=== PATIENT | male | born 1975 | race Hispanic/Latino ===

== ENCOUNTER 2020-02-18 20:15 | Inpatient (IN) | payer SELFPAY ==
--- NOTE | 2020-02-18 20:53 | P.HP ---
Certification for Inpatient Patient admitted to: Observation With expected LOS: <2 Midnights Practitioner: I am a practitioner with admitting privileges, knowledge of patient current condition, hospital course, and medical plan of care. Services: Services provided to patient in accordance with Admission requirements found in Title 42 Section 412.3 of the Code of Federal Regulations Patient History Date of Service: 02/18/20 Reason for admission: Pulmonary embolus History of Present Illness: 44-year-old gentleman presented to [place] emergency department with a complaint of shortness of breath and intermittent chest pain, worse with breathing, onset this morning. Workup in the emergency department with CTA thorax report multiple subsegmental pulmonary embolism in the right lung. Patient was transferred here to be directly admitted for further management. He is not requiring oxygen. He denies any leg swelling or pain. He denies being immobile for several hours. He denies fever. Allergies No Known Drug Allergies Allergy (Unverified 12/19/14 00:38) Unknown No Known Allergies Allergy (Uncoded 10/20/17 21:54) Unknown - Past Medical/Surgical History -: Anal fistula -: Anal fistula repair - Family History Family History: Reviewed- Non-Contributory - Social History Smoking Status: Current every day smoker Alcohol use: No CD- Drugs: No Place of Residence: Home Review of Systems Other: Except as documented, all other systems reviewed and negative. Physical Examination - Physical Exam General: Alert, In no apparent distress, Oriented x3 HEENT: Mucous membr. moist/pink, Sclerae nonicteric Neck: JVD not distended Respiratory: Clear to auscultation bilaterally, Normal air movement Cardiovascular: No edema, Regular rate/rhythm, Normal S1 S2 Capillary refill: <2 Seconds Gastrointestinal: Normal bowel sounds, Soft and benign, Non-distended, No tenderness Musculoskeletal: No swelling, No erythema Integumentary: No rashes Neurological: Normal speech, Normal strength at 5/5 x4 extr Assessment and Plan - Problems (Diagnosis) (1) Acute pulmonary embolism Current Visit: Yes Status: Acute - Plan Place under observation. Start Xarelto. Supplemental oxygen as needed Obtain echocardiogram. Pain management as needed. - Advance Directives Does patient have a Living Will: No Does patient have a Durable POA for Healthcare: No
[2020-02-18] MEDS ORDERED: ONDANSETRON 4 MG/2 ML VIAL IV PRN (21:22)
[2020-02-18] MEDS ORDERED: MORPHINE 2 MG/ML SYR IV PRN (21:22)
[2020-02-18] MEDS ORDERED: ALBUTEROL 2.5 MG/3 ML NEB SOL NEB PRN (21:22)
[2020-02-18] MEDS ORDERED: ACETAMINOPHEN 500 MG TAB PO PRN (21:22)
[2020-02-18 21:40] VITALS: BMI 36.1
[2020-02-18 22:07] LABS: Basophils % 1.1 % (0-1.3); Hematocrit 42.1 % (39.6-49.0); Lymphocytes % 31.4 % (15.3-44.8); MPV 8.3 fL (7.6-11.3); RBC Red Blood Cell Count 4.65 M/uL (4.33-5.43)
[2020-02-18 22:18] LABS: Urine Appearance CLEAR; Urine Bilirubin NEGATIVE (NEG); Urine Blood NEGATIVE (NEG); Urine Color YELLOW; Urine Glucose NEGATIVE (NEG); Urine Protein NEGATIVE (NEG); Urine Specific Gravity <=1.005 (1.005-1.030); Urine Urobilinogen 0.2 mg/dL (0.2-1.0)
[2020-02-18 22:20] LABS: Urine Microscopic Reflex NO UMIC
[2020-02-18 22:22] LABS: Potassium 3.4 mmol/L (3.5-5.1)
[2020-02-18 22:30] LABS: Protime INR 0.91
[2020-02-18] MEDS ORDERED: POTASSIUM CL SA 10 MEQ TAB PO ONE (23:00)
[2020-02-18] MEDS: RIVAROXABAN 15 MG TABLET PO SCH (23:38)
[2020-02-19 04:34] LABS: Absolute Lymphocytes (CBC) 3.2 K/uL (0.7-4.9); Basophils % 0.7 % (0-1.3); Hematocrit 45.1 % (39.6-49.0); Lymphocytes % 32.4 % (15.3-44.8); MPV 8.2 fL (7.6-11.3); RBC Red Blood Cell Count 5.02 M/uL (4.33-5.43)
[2020-02-19 04:47] LABS: Magnesium 2.1 mg/dL (1.8-2.4); Phosphorus 3.1 mg/dL (2.5-4.9)
[2020-02-19] MEDS: RIVAROXABAN 15 MG TABLET PO SCH (08:00)
--- NOTE | 2020-02-19 08:23 | P.DS ---
Admission Date: 02/18/20 Discharge Date: 02/19/20 Disposition: ROUTINE DISCHARGE Discharge Condition: GOOD Reason for Admission: Pulmonary embolus - Problems (1) Acute pulmonary embolism Status: Acute Qualifiers: Acute cor pulmonale presence: unspecified Brief History of Present Illness: 44-year-old gentleman presented to [facility] emergency department with a complaint of shortness of breath and intermittent chest pain, worse with breathing, onset this morning. Workup in the emergency department with CTA thorax report multiple subsegmental pulmonary embolism in the right lung. Patient was transferred here to be directly admitted for further management. He was not requiring oxygen. He denies any leg swelling or pain. He denies being immobile for several hours. He denies fever. Hospital Course: Patient admitted to the medical floor and started on Xarelto for anticoagulation. He was not hypoxic. His vitals were stable during the hospital stay. Patient deemed clinically stable for discharge. He is discharged with xarelto. He is informed to follow with his PCP for xarelto refill. Vital Signs/Physical Exam: Temp Pulse Resp BP Pulse Ox 97.7 F 73 18 122/68 97 02/19/20 04:00 02/19/20 04:00 02/19/20 04:00 02/19/20 04:00 02/19/20 04:00 General: Alert, In no apparent distress Neck: Supple Respiratory: Clear to auscultation bilaterally, Normal air movement Cardiovascular: No edema, Regular rate/rhythm, Normal S1 S2 Gastrointestinal: Normal bowel sounds, Soft and benign, No tenderness Musculoskeletal: No swelling Laboratory Data at Discharge: WBC 9.7 K/uL (4.3-10.9) D 02/19/20 04:16 Hgb 15.3 g/dL (13.6-17.9) 02/19/20 04:16 Hct 45.1 % (39.6-49.0) 02/19/20 04:16 Plt Count 317 K/uL (152-406) 02/19/20 04:16 PT 10.8 SECONDS (9.5-12.5) 02/18/20 21:41 INR 0.91 02/18/20 21:41 Sodium 139 mmol/L (136-145) 02/19/20 04:16 Potassium 4.0 mmol/L (3.5-5.1) 02/19/20 04:16 BUN 12 mg/dL (7-18) 02/19/20 04:16 Creatinine 1.03 mg/dL (0.55-1.3) 02/19/20 04:16 Glucose 106 mg/dL (74-106) 02/19/20 04:16 Phosphorus 3.1 mg/dL (2.5-4.9) 02/19/20 04:16 Magnesium 2.1 mg/dL (1.8-2.4) 02/19/20 04:16 Home Medications: Codeine/APAP [Tylenol W/Codeine #3 tab] 1 tab PO Q6HP PRN #20 tab 02/19/20 Apixaban [Eliquis] 5 mg PO SEECOM #75 tablet 02/20/20 New Medications: Codeine/APAP [Tylenol W/Codeine #3 tab] 1 tab PO Q6HP PRN #20 tab PRN Reason: Pain Apixaban [Eliquis] 5 mg PO SEECOM #75 tablet Patient Discharge Instructions: Follow up PCP within 2 weeks. Diet: Regular Activity: Ad juarez Followup: Aguilar Bowen MD [ACTIVE - CAN ADMIT] - 1 Week (call to make an appointment. ) Jerrod Driscoll MD [ACTIVE - CAN ADMIT] -
--- NOTE | 2020-02-19 12:51 | P.CNS ---
Date of Consult: 02/19/20 Reason for Consult: Pulmonary emboli Chief Complaint: Pulmonary embolus History of Present Illness: Patient is 44 years of age admitted with acute chest pain was vent to [facility] emergency room was diagnosed with bilateral pulmonary emboli he is doing fine he modynamically some level not on any oxygen blood pressure satisfactory no risk factors for thromboemboli in no prior history of DVT or thromboemboli as doing fine right now no fever or chill Allergies No Known Drug Allergies Allergy (Verified 02/18/20 21:23) Unknown Home Medications: Codeine/APAP [Tylenol W/Codeine #3 tab] 1 tab PO Q6HP PRN #20 tab 02/19/20 Rivaroxaban [Xarelto*] 15 mg PO BID #41 tablet 02/19/20 - Past Medical/Surgical History Diabetic: No -: Anal fistula -: acid reflux -: Anal fistula repair - Social History Smoking Status: Current some day smoker Alcohol use: No CD- Drugs: No Caffeine use: Yes Place of Residence: Home Review of Systems 10-point ROS is otherwise unremarkable Physical Examination Temp Pulse Resp BP Pulse Ox 97.0 F 72 18 126/76 96 02/19/20 08:00 02/19/20 08:00 02/19/20 08:00 02/19/20 08:00 02/19/20 08:00 General: Alert, In no apparent distress, Oriented x3 Neck: Supple Respiratory: Clear to auscultation bilaterally Cardiovascular: No edema, Regular rate/rhythm Gastrointestinal: Normal bowel sounds, Soft and benign Laboratory Data (last 24 hrs) 02/19/20 04:16: Sodium 139, Potassium 4.0, BUN 12, Creatinine 1.03, Glucose 106, Phosphorus 3.1, Magnesium 2.1 02/19/20 04:16: WBC 9.7 D, Hgb 15.3, Hct 45.1, Plt Count 317 02/18/20 21:41: PT 10.8, INR 0.91 02/18/20 21:41: Sodium 139, Potassium 3.4 L, BUN 15, Creatinine 0.97, Glucose 92 02/18/20 21:41: WBC 12.8 H, Hgb 14.2, Hct 42.1, Plt Count 314 - Problems (1) Acute pulmonary embolism Current Visit: Yes Status: Acute Plan: Patient is 44 years of age admitted with bilateral pulmonary emboli is clinically doing well not requiring oxygen hemodynamically stable labs reviewed agree with discharge on Xarelto 50 mg twice a day for 3 weeks then 12 mg daily possible indefinite anticoagulation labs unremarkable Qualifiers: Acute cor pulmonale presence: unspecified
[2020-02-19 17:51] LABS: Protime INR 1.1
[2020-02-19] MEDS: ENOXAPARIN 100 MG/ML SYR SQ SCH (20:22)
[2020-02-20 07:01] LABS: Protime INR 0.92
[2020-02-20] MEDS: ENOXAPARIN 100 MG/ML SYR SQ SCH (08:25)
[2020-02-20 09:19] VITALS: O2SAT 96
--- NOTE | 2020-02-20 14:02 | P.DS ---
Admission Date: 02/18/20 Discharge Date: 02/20/20 Primary Care Provider: none Disposition: ROUTINE DISCHARGE Discharge Condition: GOOD Reason for Admission: Pulmonary embolus Consultations: Pulmonary-Dr. Bowen Procedures: CT scan: Pulmonary embolism Medical problem list: Shortness of breast secondary to acute pulmonary embolism, etiology unknown Brief History of Present Illness: 44-year-old male presented to [facility] emergency room with shortness of breath. Patient was patient was found to have pulmonary embolism. The patient was transferred to our facility to continue workup and care. Hospital Course: Patient was a direct admit from [facility] ER. Patient found to have pulmonary embolism. The patient was transferred to our facility to continue further evaluation and workup. The patient was seen and evaluated by pulmonology. No further intervention was required. Etiology of pulmonary embolism undetermined. Prior to discharge arrangements for the patient to get Eliquis was done. This well as done with the help of neonatal social worker. At discharge patient will continue with Eliquis 10 mg 1 pill twice daily for 7 days then 5 mg 1 pill twice daily. The patient will follow up with pulmonology in 1 week to further address and monitor. Patient will likely require indefinite chronic anti coagulation therapy. This be further determined by pulmonology. Education on pulmonary embolism and Eliquis provided. Patient understands risks and benefits. Patient will establish care with a PCP to further monitor and address. Vital Signs/Physical Exam: Temp Pulse Resp BP Pulse Ox 97.0 F 72 16 123/62 95 02/20/20 08:00 02/20/20 08:00 02/20/20 08:00 02/20/20 08:00 02/20/20 08:00 General: Alert, In no apparent distress, Oriented x3, Cooperative HEENT: Atraumatic Neck: Supple Respiratory: Clear to auscultation bilaterally, Normal air movement Cardiovascular: Normal pulses, Regular rate/rhythm Gastrointestinal: Normal bowel sounds, Soft and benign, Non-distended, No tenderness, No masses, No rebound, No guarding Musculoskeletal: No erythema, No tenderness, No warmth Integumentary: No tenderness/swelling, No erythema, No warmth, No cyanosis Neurological: Normal speech, Normal strength at 5/5 x4 extr, Normal tone, Normal affect Laboratory Data at Discharge: WBC 9.7 K/uL (4.3-10.9) D 02/19/20 04:16 Hgb 15.3 g/dL (13.6-17.9) 02/19/20 04:16 Hct 45.1 % (39.6-49.0) 02/19/20 04:16 Plt Count 317 K/uL (152-406) 02/19/20 04:16 PT 10.9 SECONDS (9.5-12.5) 02/20/20 06:08 INR 0.92 02/20/20 06:08 Sodium 139 mmol/L (136-145) 02/19/20 04:16 Potassium 4.0 mmol/L (3.5-5.1) 02/19/20 04:16 BUN 12 mg/dL (7-18) 02/19/20 04:16 Creatinine 1.03 mg/dL (0.55-1.3) 02/19/20 04:16 Glucose 106 mg/dL (74-106) 02/19/20 04:16 Phosphorus 3.1 mg/dL (2.5-4.9) 02/19/20 04:16 Magnesium 2.1 mg/dL (1.8-2.4) 02/19/20 04:16 Home Medications: Codeine/APAP [Tylenol W/Codeine #3 tab] 1 tab PO Q6HP PRN #20 tab 02/19/20 Apixaban [Eliquis] 5 mg PO SEECOM #75 tablet 02/20/20 New Medications: Apixaban [Eliquis] 5 mg PO SEECOM #75 tablet Codeine/APAP [Tylenol W/Codeine #3 tab] 1 tab PO Q6HP PRN #20 tab PRN Reason: Pain Patient Discharge Instructions: Patient was a direct admit from [facility]. Patient found to have pulmonary embolism. The patient was transferred to our facility to continue further evaluation and workup. The patient was seen and evaluated by pulmonology. No further intervention was required. Etiology of pulmonary embolism undetermined. Prior to discharge arrangements for the patient to get Eliquis was done. This well as done with the help of neonatal social worker. At discharge patient will continue with Eliquis 10 mg 1 pill twice daily for 7 days then 5 mg 1 pill twice daily. The patient will follow up with pulmonology in 1 week to further address and monitor. Patient will likely require indefinite chronic anti coagulation therapy. This be further determined by pulmonology. Education on pulmonary embolism and Eliquis provided. Patient understands risks and benefits. Patient will establish care with a PCP to further monitor and address. Diet: Regular Activity: Ad juarez Time spent managing pt's care (in minutes): 55
[2020-02-20] MEDS ORDERED: WARFARIN SODIUM 5 MG TAB PO SCH (17:00)
[2020-02-20 17:18] VITALS: BP 122/69; TEMP 97.4
== END 2020-02-20 20:07 | disposition home or self-care (01) | DRG 176 ==
LOC: 2ND 20:15 → OBSVTOIN 20:15 → INTOOBSV 20:15
PROVIDERS: ADMIT Internal Medicine Sleep Medicine; ATTEND Family Medicine
DX: I26.99 Other pulmonary embolism without acute cor pulmonale (principal); K21.9 Gastro-esophageal reflux disease without esophagitis; F17.200 Nicotine dependence, unspecified, uncomplicated; Z79.01 Long term (current) use of anticoagulants; Z79.891 Long term (current) use of opiate analgesic
CPT/HCPCS: 36415; 80048; 81003; 83735; 84100; 85025; 85610; 94760; J1650

== ENCOUNTER 2020-04-23 21:56 | Emergency (ER) | payer SELFPAY ==
--- NOTE | 2020-04-23 22:55 | ER ---
Nurse's Notes [facility] Name: Albino Lemus Age: 45 yrs Sex: Male : 1975 Arrival Date: 04/23/2020 Time: 22:07 Bed 16 Private MD: Diagnosis: Hematoma Foot Presentation: 04/23 22:08 Chief complaint: Patient states: Reports he has been having ankle pain to the right ea ankle. Pt reports he called his postal delivery officer, and she okayed the ankle bracelet to be placed. Coronavirus screen: At this time, the client does not indicate any symptoms associated with coronavirus-19. Ebola Screen: No symptoms or risks identified at this time. Initial Sepsis Screen: Does the patient meet any 2 criteria? HR > 90 bpm. Does the patient have a suspected source of infection? No. Patient's initial sepsis screen is negative. Risk Assessment: Do you want to hurt yourself or someone else? Patient reports no desire to harm self or others. Onset of symptoms. 22:08 Method Of Arrival: Ambulatory ea 22:08 Acuity: AMOR 3 ea Historical: - Allergies: 22:13 No Known Drug Allergies; ea - Home Meds: 22:13 Eliquis oral oral [Active]; ea - PMHx: 22:13 Anal fistula; pulmonary embolism; ea - PSHx: 22:13 fistula repair; ea - Immunization history:: Adult Immunizations up to date. - Social history:: Smoking status: unknown. Screenin:11 Abuse screen: Denies threats or abuse. Nutritional screening: No deficits noted. ea Tuberculosis screening: No symptoms or risk factors identified. Fall Risk None identified. Assessment: 22:26 Reassessment: Patient and/or family updated on plan of care and expected duration. Pain mt2 level reassessed. Patient is alert, oriented x 3, equal unlabored respirations, skin warm/dry/pink. General: Appears uncomfortable, Behavior is cooperative. Pain: Complains of pain in right ankle Pain currently is 7 out of 10 on a pain scale. Neuro: No deficits noted. Cardiovascular: No deficits noted. Respiratory: No deficits noted. GI: No deficits noted. : No deficits noted. EENT: No deficits noted. Derm: Skin is HEMATOMA. Musculoskeletal: Swelling present in right ankle and medial aspect of right foot. 23:04 Reassessment: Patient and/or family updated on plan of care and expected duration. Pain mt2 level reassessed. Patient is alert, oriented x 3, equal unlabored respirations, skin warm/dry/pink. Patient states symptoms have improved. General: Appears in no apparent distress. Behavior is cooperative. Vital Signs: 22:08 BP 161 / 91; Pulse 103; Resp 16; Temp 98.4; Pulse Ox 95% on R/A; Pain 8/10; mt2 22:08 BP 161 / 91; Pulse 112; Resp 18; Temp 98.5; Pulse Ox 98% on R/A; Weight 99.79 kg; ea Height 5 ft. 7 in. (170.18 cm); 23:05 BP 126 / 74; Pulse 89; Resp 16; Pulse Ox 96% ; Pain 0/10; mt2 22:08 Body Mass Index 34.46 (99.79 kg, 170.18 cm) ea ED Course: 22:07 Patient arrived in ED. twila 22:07 Sandy Marshall RN is Primary Nurse. mt2 22:08 Scooby Vides PA is PHCP. jr8 22:08 Romel Brooks MD is Attending Physician. jr8 22:11 Triage completed. ea 22:11 Arm band placed on right wrist. Patient placed in an exam room, on a stretcher, on ea pulse oximetry. 22:11 Patient has correct armband on for positive identification. Bed in low position. Call ea light in reach. 22:41 XRAY Foot RIGHT 3 View In Process Unspecified. EDMS 23:05 No provider procedures requiring assistance completed. Patient did not have IV access mt2 during this emergency room visit. Administered Medications: No medications were administered Outcome: 22:55 Discharge ordered by . joaquin 23:05 Discharged to home ambulatory. mt2 23:05 Condition: good 23:05 Discharge instructions given to patient, Instructed on discharge instructions, follow up and referral plans. 23:06 Patient left the ED. mt2 Signatures: Dispatcher [employer] Cinthya Henderson Josh, PA PA jr8 Ira Riggs RN RN ea Toscano, Marlene, RN RN mt2
--- NOTE | 2020-04-23 22:56 | EDPHYS ---
Physician Documentation [facility] Name: Albino Lemus Age: 45 yrs Sex: Male : 1975 Arrival Date: 04/23/2020 Time: 22:07 Bed 16 Private MD: ED Physician Romel Brooks HPI: 04/23 22:15 This 45 yrs old Male presents to ER via Ambulatory with complaints of Ankle jr8 and foot Swelling. 22:15 Onset: The symptoms/episode began/occurred gradually, 2 day(s) ago. Associated signs jr8 and symptoms: Pertinent positives: pain and ecchymosis. Modifying factors: The symptoms are alleviated by elevation of extremity, the symptoms are aggravated by weight bearing, movement. Severity of symptoms: At their worst the symptoms were moderate, in the emergency department the symptoms are unchanged. The patient has not experienced similar symptoms in the past. The patient has not recently seen a physician. Patient stated that he has ankle monitor on. Stated that it was put on to tight. Had been wearing boots for work. Started to get swelling and bruising. Denies direct trauma or injury to foot or ankle. Had founder chairman and chief creative officer loosen it which is improving the swelling but still with moderate pain . Historical: - Allergies: 22:13 No Known Drug Allergies; ea - Home Meds: 22:13 Eliquis oral oral [Active]; ea - PMHx: 22:13 Anal fistula; pulmonary embolism; ea - PSHx: 22:13 fistula repair; ea - Immunization history:: Adult Immunizations up to date. - Social history:: Smoking status: unknown. ROS: 22:15 Eyes: Negative for injury, pain, redness, and discharge, ENT: Negative for injury, jr8 pain, and discharge, Neck: Negative for injury, pain, and swelling, Cardiovascular: Negative for chest pain, palpitations, and edema, Respiratory: Negative for shortness of breath, cough, wheezing, and pleuritic chest pain, Abdomen/GI: Negative for abdominal pain, nausea, vomiting, diarrhea, and constipation, Back: Negative for injury and pain, Skin: Negative for injury, rash, and discoloration, Neuro: Negative for headache, weakness, numbness, tingling, and seizure. 22:15 MS/extremity: Positive for ecchymosis, pain, swelling, tenderness, of the right foot. Exam: 22:15 Constitutional: This is a well developed, well nourished patient who is awake, alert, jr8 and in no acute distress. Cardiovascular: Regular rate and rhythm with a normal S1 and S2. No gallops, murmurs, or rubs. Normal PMI, no JVD. No pulse deficits. Respiratory: Lungs have equal breath sounds bilaterally, clear to auscultation and percussion. No rales, rhonchi or wheezes noted. No increased work of breathing, no retractions or nasal flaring. Skin: Warm, dry with normal turgor. Normal color with no rashes, no lesions, and no evidence of cellulitis. Neuro: Awake and alert, GCS 15, oriented to person, place, time, and situation. Cranial nerves II-XII grossly intact. Motor strength 5/5 in all extremities. Sensory grossly intact. Cerebellar exam normal. Normal gait. 22:15 Musculoskeletal/extremity: ROM: intact in all extremities, full active range of motion, full passive range of motion, limited active range of motion due to pain, limited passive range of motion due to pain, Circulation is intact in all extremities. Sensation intact. Ankle monitor in place to right ankle but freely movable. 2+ pedal pulses present to affected extremity with normal sensation. Moderate swelling with ecchymosis noted to right foot and distal portion of ankle. Tender to palpation. Rest of extremities unremarkable . Vital Signs: 22:08 BP 161 / 91; Pulse 103; Resp 16; Temp 98.4; Pulse Ox 95% on R/A; Pain 8/10; mt2 22:08 BP 161 / 91; Pulse 112; Resp 18; Temp 98.5; Pulse Ox 98% on R/A; Weight 99.79 kg; ea Height 5 ft. 7 in. (170.18 cm); 23:05 BP 126 / 74; Pulse 89; Resp 16; Pulse Ox 96% ; Pain 0/10; mt2 22:08 Body Mass Index 34.46 (99.79 kg, 170.18 cm) ea MDM: 22:08 Patient medically screened. jr8 22:53 Data reviewed: vital signs, nurses notes, radiologic studies, plain films, and as a jr8 result, I will discharge patient. Data interpreted: Pulse oximetry: on room air is 98 %. Interpretation: normal. Counseling: I had a detailed discussion with the patient and/or guardian regarding: the historical points, exam findings, and any diagnostic results supporting the discharge/admit diagnosis, radiology results, the need for outpatient follow up, a family practitioner, to return to the emergency department if symptoms worsen or persist or if there are any questions or concerns that arise at home. ED course: Discussed with patient that the bruising and swelling was most likely from him compressing his monitor while working in his boots. Also on Eliquis which makes him bruise and bleed easer which has contributed to this as well. No fracture. Needs to elevate, rest, and ice region . 04/23 22:14 Order name: XRAY Foot RIGHT 3 View ea Administered Medications: No medications were administered Disposition: 23:12 Co-signature as Attending Physician, Romel Brooks MD. rn Disposition: 04/23/20 22:55 Discharged to Home. Impression: Hematoma Foot. - Condition is Stable. - Discharge Instructions: Hematoma. - Medication Reconciliation Form, Thank You Letter, Antibiotic Education, Prescription Opioid Use form. - Follow up: Private Physician; When: 5 - 6 days; Reason: Recheck today's complaints, Continuance of care, Re-evaluation by your physician. - Problem is new. - Symptoms have improved. Signatures: Dispatcher [employer] EDMS Romel Brooks MD MD rn Roszak, Josh, PA PA jr8 Ira Riggs RN Sandy Amaya ea, RN RN mt2 Corrections: (The following items were deleted from the chart) 23:06 22:55 04/23/2020 22:55 Discharged to Home. Impression: Hematoma Foot. Condition is mt2 Stable. Forms are Medication Reconciliation Form, Thank You Letter, Antibiotic Education, Prescription Opioid Use. Follow up: Private Physician; When: 5 - 6 days; Reason: Recheck today's complaints, Continuance of care, Re-evaluation by your physician. Problem is new. Symptoms have improved. jr8
[2020-04-23 23:12] VITALS: TEMP 98.4
[2020-04-23 23:13] VITALS: BP 126/74; O2SAT 96
--- NOTE | 2020-04-24 08:16 | RAD REPORT ---
EXAM DESCRIPTION: RAD - Foot Right 3 View - 04/23/2020 10:41 pm CLINICAL HISTORY: Right foot pain FINDINGS: No fracture or dislocation is seen
== END 2020-04-23 23:06 | disposition home or self-care (01) ==
LOC: ER 21:56
DX: S90.31XA Contusion of right foot, initial encounter (principal); Z86.711 Personal history of pulmonary embolism; Z79.01 Long term (current) use of anticoagulants
CPT/HCPCS: 99283

== ENCOUNTER → 2023-12-03 | Emergency (ER) | payer OTHER ==
[~2023-12-03] MED LIST: MAGNESIUM CITRATE 300 ML BOT ONE; NA CHLORIDE 0.9% 1,000 ML ONE
[2023-12-03 19:38] LABS: Absolute Basophils 0.1 K/uL (0-0.5); Absolute Eosinophils 0.4 K/uL (0-0.5); Absolute Lymphocytes (CBC) 2.9 K/uL (0.7-4.9); Absolute Monocytes 0.9 K/uL (0.1-1.3); Absolute Neutrophil 5.8 K/uL (1.8-8.0); Basophils % 0.8 % (0-1.3); Eosinophils % 4.1 % (0-4.4); Hematocrit 45.5 % (39.6-49.0); Hemoglobin 15.5 g/dL (13.6-17.9); Lymphocytes % 28.6 % (15.3-44.8); MCH 31.7 pg (27.0-35.0); MCV 93.3 fL (80-100); MPV 7.3 fL (7.6-11.3); Monocytes % 8.6 % (3.3-12.3); Neutrophils % 57.9 % (41.7-73.7); Nucleated Red Blood Cells % 0.1 % (0-0); Platelets 318 thou/uL (152-406); RBC Red Blood Cell Count 4.87 M/uL (4.33-5.43)
[2023-12-03 19:58] LABS: Albumin 3.6 g/dL (3.4-5.0); Albumin/Globulin Ratio 0.9 (1.1-1.8); Bilirubin Total 0.1 mg/dL (0.2-1.0); Protein, Total 7.6 g/dL (6.4-8.2)
[2023-12-03 20:05] LABS: Calcium Oxalate Crystals- Ur Many /HPF (None Seen); Specific Gravity > 1.030 (1.005-1.030); Sqamous Epithelial None Seen /HPF (None Seen); Urine Bacteria None Seen /HPF (<20); Urine Bilirubin NEGATIVE (Negative); Urine Blood 1+ (Negative); Urine Clarity Turbid (Clear); Urine Color Light-Yellow (Yellow); Urine Culture Reflex Order NOT NEEDED; Urine Glucose NEGATIVE (Negative); Urine Ketones NEGATIVE (Negative); Urine Microscopic Reflex YN ORDER UMIC; Urine Mucus Slight /HPF (None Seen); Urine Nitrite NEGATIVE (Negative); Urine Protein TRACE (Negative); Urine Sperm Present (None Seen); Urine Urobilinogen 1+ (Normal); Urine WBC <5 /HPF (<5)
--- NOTE | 2023-12-03 20:44 | RAD REPORT ---
EXAM DESCRIPTION: CT - Abdomen Pelvis W Contrast - 12/03/2023 8:13 pm CLINICAL HISTORY: ABD PAIN COMPARISON: No comparisons TECHNIQUE: Thin cut axial CT imaging of the abdomen and pelvis was performed following intravenous a dministration of 100 mL Isovue 300. Multiplanar reformats were generated and reviewed. All CT scans are performed using dose optimization technique as appropriate and may include automated exposure control or mA/KV adjustment according to patient size. FINDINGS: No suspicious findings in the lung bases. The liver, spleen, adrenal glands, and pancreas show no suspicious findings. Gallbladder is slightly contracted with a single small gallstone noted. Symmetric renal function is seen with no hydronephrosis or suspicious renal mass. No dilated bowel loops or bowel wall thickening. No free air, free fluid or inflammatory stranding. N o hernia, mass or bulky lymphadenopathy. The urinary bladder is without significant finding. No suspicious bony findings. IMPRESSION: No acute intra-abdominal process. Cholelithiasis.
--- NOTE | 2023-12-03 21:02 | ER ---
Nurse's Notes [facility] Name: Albino Lemus Age: 48 yrs Sex: Male : 1975 Arrival Date: 12/03/2023 Time: 18:07 Bed 11 Private MD: Diagnosis: Constipation, unspecified Presentation: 12/02 18:55 Chief complaint: Patient states: Pt states he has not had a bowel movement in 1 week. ll1 Pt states he drank milk but it didn't help. Pt states he has urge to urinate but he has to "push it out". Coronavirus screen: At this time, the client does not indicate any symptoms associated with coronavirus-19. Ebola Screen: No symptoms or risks identified at this time. Initial Sepsis Screen: Does the patient meet any 2 criteria? No. Patient's initial sepsis screen is negative. Does the patient have a suspected source of infection? No. Patient's initial sepsis screen is negative. Risk Assessment: Do you want to hurt yourself or someone else? Patient reports no desire to harm self or others. Onset of symptoms was November 27, 2023. 18:55 Method Of Arrival: Ambulatory ll1 18:55 Acuity: AMOR 4 ll1 Triage Assessment: 18:58 General: Appears uncomfortable, Behavior is calm, cooperative. Pain: Complains of pain ll1 in abdomen. EENT: No deficits noted. No signs and/or symptoms were reported regarding the EENT system. Neuro: No deficits noted. Cardiovascular: No deficits noted. Respiratory: No deficits noted. GI: Reports lower abdominal pain, constipation. : Reports difficulty urinating. 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 - Social history:: Smoking status: Patient reports the use of cigarette tobacco products, smokes one pack cigarettes per day. Screenin:29 [facility] ED Fall Risk Assessment (Adult) History of falling in the last 3 months, kd3 including since admission No falls in past 3 months (0 pts) Confusion or Disorientation No (0 pts) Intoxicated or Sedated No (0 pts) Impaired Gait No (0 pts) Mobility Assist Device Used No (0 pt) Altered Elimination No (0 pt) Score/Fall Risk Level 0 - 2 = Low Risk Oriented to surroundings. Abuse screen: Denies threats or abuse. Denies injuries from another. Nutritional screening: No deficits noted. Tuberculosis screening: No symptoms or risk factors identified. Assessment: 19:28 General: Appears in no apparent distress. Behavior is calm, cooperative. Pain: kd3 Complains of pain in abdomen. Neuro: Level of Consciousness is awake, alert, obeys commands, Oriented to person, place, time, situation. Cardiovascular: Patient's skin is warm and dry. Respiratory: Airway is patent Trachea midline Respiratory effort is even, unlabored, Respiratory pattern is regular, symmetrical. 19:29 GI: Bowel sounds present X 4 quads. Abd is soft X 4 quads Abdomen is tender to kd3 palpation in right lower quadrant and left lower quadrant. 20:16 General: Pt returned to the room from CT . kd3 Vital Signs: 18:55 BP 124 / 82; Pulse 85; Resp 16; Temp 97.9; Pulse Ox 100% ; Weight 81.65 kg; Height 5 ll1 ft. 7 in. ; Pain 10/10; 20:19 BP 110 / 96; Pulse 61; Resp 17; Pulse Ox 100% on R/A; kd3 21:00 BP 127 / 89; Pulse 74; Resp 16; Pulse Ox 100% on R/A; cm10 18:55 Body Mass Index 28.19 (81.65 kg, 170.18 cm) ll1 18:55 Pain Scale: Adult ll1 ED Course: 18:11 Patient arrived in ED. mg5 18:12 Shaneka Spear FNP-C is [facility]. kb 18:12 Nicolás Hernandez MD is Attending Physician. kb 18:57 Triage completed. ll1 18:59 Arm band placed on left wrist. ll1 19:15 Susan Vernon, RUBA is Primary Nurse. kd3 19:25 Inserted saline lock: 20 gauge in right antecubital area, using aseptic technique. kd3 Blood collected. 19:25 Initial lab(s) drawn, by wa, sent to lab. kd3 19:28 Lipase Sent. kd3 19:28 CMP Sent. kd3 19:28 CBC with Diff Sent. kd3 19:29 Patient has correct armband on for positive identification. kd3 19:48 Urinalysis w/ reflexes Sent. kd3 19:49 Lipase Sent. kd3 19:49 CMP Sent. kd3 19:49 Urine collected: clean catch specimen, clear. kd3 20:15 CT Abd/Pelvis - IV Contrast Only In Process Unspecified. EDMS 21:16 Provided Education on: Follow-up instructions. cm10 21:16 No provider procedures requiring assistance completed. IV discontinued, intact, cm10 bleeding controlled, No redness/swelling at site. Pressure dressing applied. Administered Medications: 19:28 Drug: NS 0.9% IV 1000 ml IV at 1 bolus Per protocol; 1000 mL bolus Route: IV; Rate: 1 kd3 bolus; Site: right antecubital; 21:17 Follow up: Response: No adverse reaction; IV Status: Completed infusion; IV Intake: cm10 1000ml 21:10 Drug: Magnesium Citrate PO Liquid 300 ml PO once Route: PO; cm10 21:16 Follow up: Response: Medication administered at discharge. cm10 Medication: 19:29 VIS not applicable for this client. kd3 Intake: 21:17 IV: 1000ml; Total: 1000ml. cm10 Outcome: 21:02 Discharge ordered by . kb 21:16 Discharged to home ambulatory, with family, cm10 21:16 Condition: good 21:16 Discharge instructions given to patient, Instructed on discharge instructions, follow up and referral plans. Demonstrated understanding of instructions, follow-up care, 21:16 Patient left the ED. cm10 Signatures: Dispatcher [employer] EDNE Shaneka Spear, [employer] MA[employer]GER-C [employer] MANAGER-Trish Krueger RN RN ll1 Susan Vernon RN RN kd3 Tia Mckeon RN RN cm10 Mami Murillo mg5 Corrections: (The following items were deleted from the chart) 18:58 18:57 Home Meds: Eliquis Oral; ll1 ll1 18:58 18:58 Home Meds: Eliquis Oral; ll1 ll1
--- NOTE | 2023-12-03 21:02 | EDPHYS ---
Physician Documentation [facility] Name: Albino Lemus Age: 48 yrs Sex: Male : 1975 Arrival Date: 12/03/2023 Time: 18:07 Bed 11 Private MD: ED Physician Nicolás Hernandez HPI: 12/02 20:10 This 48 yrs old Male presents to ER via Ambulatory with complaints of kb Constipation. 20:10 Patient is a 48-year-old male who presents for lower abdominal pain and constipation kb for over a week. States he did have a small bowel movement 3 days ago. Denies nausea, vomiting, fever.. 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 - Social history:: Smoking status: Patient reports the use of cigarette tobacco products, smokes one pack cigarettes per day. ROS: 20:09 Constitutional: As per HPI kb Exam: 20:09 Constitutional: This is a well developed, well nourished patient who is awake, alert, kb and in no acute distress. Head/Face: Normocephalic, atraumatic. ENT: Moist Mucous membranes Cardiovascular: Regular rate Respiratory: Respirations even and unlabored. No increased work of breathing. Talking in full sentences Skin: Warm, dry with normal turgor. Normal color. MS/ Extremity: Pulses equal, no cyanosis. Neurovascular intact. Full, normal range of motion. Neuro: Awake and alert, GCS 15, oriented to person, place, time, and situation. Moves all extremities. Normal gait. 20:09 Abdomen/GI: Inspection: abdomen appears normal, Bowel sounds: normal, Palpation: soft, in all quadrants, moderate abdominal tenderness, in the right lower quadrant and left lower quadrant, Vital Signs: 18:55 BP 124 / 82; Pulse 85; Resp 16; Temp 97.9; Pulse Ox 100% ; Weight 81.65 kg; Height 5 ll1 ft. 7 in. ; Pain 10/10; 20:19 BP 110 / 96; Pulse 61; Resp 17; Pulse Ox 100% on R/A; kd3 21:00 BP 127 / 89; Pulse 74; Resp 16; Pulse Ox 100% on R/A; cm10 18:55 Body Mass Index 28.19 (81.65 kg, 170.18 cm) ll1 18:55 Pain Scale: Adult ll1 MDM: 18:13 Patient medically screened. kb 21:01 Differential diagnosis: non-specific abd pain, constipation, bowel obstruction. Data kb reviewed: vital signs, nurses notes. Counseling: I had a detailed discussion with the patient and/or guardian regarding the historical points, exam findings, and any diagnostic results supporting the discharge/admit diagnosis, lab results, radiology results, the need for outpatient follow up, a family practitioner, to return to the emergency department if symptoms worsen or persist or if there are any questions or concerns that arise at home. 12/02 18:41 Order name: CBC with Diff; Complete Time: 19:49 kb 12/02 18:41 Order name: CMP; Complete Time: 19:59 kb 12/02 18:41 Order name: Lipase; Complete Time: 19:59 kb 12/02 18:41 Order name: Urinalysis w/ reflexes; Complete Time: 20:07 kb 12/02 18:41 Order name: CT Abd/Pelvis - IV Contrast Only; Complete Time: 20:53 kb 12/02 18:41 Order name: IV Saline Lock; Complete Time: 19:28 kb 12/02 18:41 Order name: Labs collected and sent; Complete Time: 19:28 kb Administered Medications: 19:28 Drug: NS 0.9% IV 1000 ml IV at 1 bolus Per protocol; 1000 mL bolus Route: IV; Rate: 1 kd3 bolus; Site: right antecubital; 21:17 Follow up: Response: No adverse reaction; IV Status: Completed infusion; IV Intake: cm10 1000ml 21:10 Drug: Magnesium Citrate PO Liquid 300 ml PO once Route: PO; cm10 21:16 Follow up: Response: Medication administered at discharge. cm10 Disposition Summary: 12/03/23 21:02 Discharge Ordered Notes: Location: Home kb Condition: Stable kb Diagnosis - Constipation, unspecified kb Followup: kb - With: Emergency Department - When: As needed - Reason: Worsening of condition Followup: kb - With: Private Physician - When: 2 - 3 days - Reason: Recheck today's complaints, Continuance of care, Re-evaluation by your physician Discharge Instructions: - Discharge Summary Sheet kb - Constipation, Adult, [id number] kb Forms: - Medication Reconciliation Form kb - Thank You Letter kb - Antibiotic Education kb - Prescription Opioid Use kb - Patient Portal Instructions kb - Leadership Thank You Letter kb Signatures: Dispatcher [employer] Shaneka Lisa, RIVETER-C RIVETER-Trish Krueger RN RN ll1 Susan Vernon RN RN kd3 Tia Mckeon RN RN cm10 Corrections: (The following items were deleted from the chart) 18:58 18:57 Home Meds: Eliquis Oral; ll1 ll1 18:58 18:58 Home Meds: Eliquis Oral; ll1 ll1
[2023-12-03 22:01] VITALS: BP 127/89; TEMP 97.9; O2SAT 100
== END ==
LOC: ER 18:07
DX: K59.00 Constipation, unspecified (principal); F17.210 Nicotine dependence, cigarettes, uncomplicated
CPT/HCPCS: 96361; 85025; 81001; 36415; 83690; 80053; 74177; 96360; 99284; Q9967; J7030